=== PATIENT | male | born 1960 | race African-American/Black ===

== ENCOUNTER 2016-08-09 15:23 | Emergency (ER) | payer OTHER ==
[2016-08-09 15:31] VITALS: BP 123/79
--- NOTE | 2016-08-09 16:14 | UC ---
[facility] HPI - HPI Summary HPI Summary: PT WITH CHIPPED, CRACKED RIGHT UPPER TEETH AND OVERALL POOR DENTITION. WENT TO SLEEP LAST NIGHT AND THIS MORNING WOKE UP WITH WHOLE RIGHT SIDE OF FACE SWOLLEN. WENT TO DENTIST ([facility]) AND DRAINAGE ATTEMPTED BUT NOT SUFFICIENT. WAS ADVISED TO COME HERE FOR IV ABX. - History of Current Complaint Chief Complaint: UCDentalProblem Stated Complaint: TOOTH COMPLAINT Time Seen by Provider: 08/09/16 15:59 Hx Obtained From: Patient Onset/Duration: Sudden Onset, Lasting Hours, Still Present Severity: Moderate Pain Intensity: 8 Pain Scale Used: 0-10 Numeric Aggravating: Heat, Cold, Chewing Alleviating: Nothing Related History: Previous Dental Care on Same Tooth, Discharge, Swelling - Allergies/Home Medications Allergies/Adverse Reactions: Allergies Allergy/AdvReac Type Severity Reaction Status Date / Time Bee Venom Allergy Severe Anaphylatic Verified 08/09/16 15:30 Shock DUST Allergy Severe BREATHING Uncoded 08/09/16 15:30 PROBLEMS Home Medications: Home Medications ALPRAZolam TAB* [Xanax TAB*] 08/09/16 [History Confirmed 08/09/16] Cetirizine* [ZyrTEC 10 MG TAB*] 08/09/16 [History Confirmed 08/09/16] Hydrochlorothiazide TAB* [Hydrodiuril TAB*] 25 mg PO DAILY 08/09/16 [History Confirmed 08/09/16] Lisinopril [Zestril 20 MG-] 08/09/16 [History] Sertraline HCl [Zoloft] 100 mg PO 08/09/16 [History] PMH/Surg Hx/FS Hx/Imm Hx Cardiovascular History: Hypertension Psychological History: Anxiety - Surgical History Surgical History: None - Family History Known Family History: Positive: Hypertension - Social History Alcohol Use: None Substance Use Type: None Smoking Status (MU): Current Every Day Smoker Amount Used/How Often: 1/2 pack a day Review of Systems Constitutional: Negative Eyes: Negative ENT: Dental Pain Respiratory: Negative Cardiovascular: Negative Gastrointestinal: Negative All Other Systems Reviewed And Are Negative: Yes Physical Exam Triage Information Reviewed: Yes Appearance: Well-Appearing, No Pain Distress, Well-Nourished Vital Signs: Initial Vital Signs Temp 97.2 F 08/09/16 15:30 Pulse 61 08/09/16 15:30 Resp 16 08/09/16 15:30 BP 123/79 08/09/16 15:30 Pulse Ox 100 08/09/16 15:30 Vital Signs Reviewed: Yes Eyes: Positive: Conjunctiva Clear ENT: Positive: Hearing grossly normal Dental: Positive: Gross Decay/Caries @ - DIFFUSELY POOR DENTITION WITH MULTIPLE MISSING TEETH. TENDER TO PERCUSSION RIGHT UPPER TEETH. RIGHT FACIAL SWELLING UP TO INFRAORBITAL REGION. Neck: Positive: Supple, Nontender Respiratory: Positive: No respiratory distress, No accessory muscle use Cardiovascular: Positive: Pulses Normal Abdomen Description: Positive: Soft Musculoskeletal: Positive: ROM Intact Neurological: Positive: Alert Psychological: Positive: Age Appropriate Behavior Skin: Negative: rashes Dental Complaint Course/Dx - Course Course Of Treatment: SPOKE TO DR. JANNETTE ADAMS DDS FROM [facility]. SHE CONFIRMED PT NEED FOR IV ABX FOR SIGNIFICANT DENTAL ABSCESS. STATED THAT ORAL SURGEON IN [place] WOULD BE CALLING PT ON FRIDAY TO SCHEDULE AN APPT FOR EXTRACTION BUT THAT THEY REQUIRED HIM TO BE TX WITH IV ABX FIRST. TO [facility] [place] ER BY PRIVATE CAR. - Differential Dx/Diagnosis Provider Diagnoses: DENTAL ABSCESS WITH FACIAL SWELLING - Physician Notification/Consults Discussed Patient Care With: Rosa Elena Robertson - TO [facility] ER BY PRIVATE CAR Time Discussed With Above Provider: 16:49 Discharge - Discharge Plan Condition: Stable Disposition: AGAINST MEDICAL ADVICE Referrals: Derrek Alfredo MD [Medical Doctor] -
== END 2016-08-09 16:45 | disposition left against medical advice (07) ==
LOC: UCEAST 15:23
DX: K04.7 Periapical abscess without sinus (principal); R22.0 Localized swelling, mass and lump, head; F17.210 Nicotine dependence, cigarettes, uncomplicated
CPT/HCPCS: 99202; G0463

== ENCOUNTER 2016-08-09 17:28 | Emergency (ER) | payer OTHER ==
[2016-08-09 18:27] LABS: Hematocrit 38 % (42-52); Hemoglobin 12.6 g/dl (14.0-18.0); Mean Corpuscular HGB Conc 34 g/dl (31-36); Mean Corpuscular Hemoglobin 33 pg (27-31); Mean Corpuscular Volume 100 fL (80-94); Mean Platelet Volume 8 um3 (7.4-10.4); Red Blood Count 3.77 10^6/ul (4.0-5.4); Red Cell Distribution Width 13 % (10.5-15); White Blood Count 13.4 10^3/ul (3.5-10.8)
[2016-08-09] MEDS ORDERED: Ketorolac INJ* 30 MG/ML 1 ML VIAL IV PUSH ONE (18:33)
[2016-08-09 18:42] LABS: Albumin 4.5 g/dL (3.2-5.2); BUN/Creatinine Ratio 12.1 (8-20); Calcium 9.6 mg/dL (8.6-10.3); EGFR African American 92.6 (>60); Globulin 3.7 g/dL (2-4); Potassium 2.9 mmol/L (3.5-5.0); Total Bilirubin 0.8 mg/dL (0.2-1.0); Total Protein 8.2 g/dL (6.4-8.9)
--- NOTE | 2016-08-09 18:45 | ED ---
Throat Pain/Nasal Congestion - HPI Summary HPI Summary: 55 male presents sent over from urgent care for a dental abscess. Patient states he was at his dentist today who attempted to drain his abscess but was unsuccessful. Tried to get into an oral surgeon's office however was told that he needed IV antibiotics before having it surgically drained. However does state the swelling has improved some since the procedure. Patient states he has had a fractured tooth that worsened a couple of days ago and this morning he woke up with a swollen face and pain of his upper right jaw and cheek. Admits to feeling feverish. Denies difficulty breathing and difficulty swallowing. No other complaints at this time. No PMHx. No recent trauma or injury. - History of Current Complaint Chief Complaint: EDDentalPain Time Seen by Provider: 08/09/16 18:08 Hx Obtained From: Patient Onset/Duration: Sudden Onset, Lasting Days - 1 Severity: Severe Associated Signs And Symptoms: Positive: Negative Cough: None - Epiglottits Risk Factors Epiglottis Risk Factors: Negative - Allergies/Home Medications Allergies/Adverse Reactions: Allergies Allergy/AdvReac Type Severity Reaction Status Date / Time Bee Venom Allergy Severe Anaphylatic Verified 08/09/16 18:02 Shock Penicillins Allergy Intermediate Unknown Verified 08/09/16 19:40 Reaction Details DUST Allergy Severe BREATHING Uncoded 08/09/16 18:02 PROBLEMS PMH/Surg Hx/FS Hx/Imm Hx Endocrine/Hematology History: Denies: Hx Diabetes Cardiovascular History: Denies: Hx Hypertension Respiratory History: Denies: Hx Asthma - Surgical History Surgery Procedure, Year, and Place: n/a - Immunization History Immunizations Up to Date: Yes Infectious Disease History: No Infectious Disease History: Denies: Traveled Outside the [place] in Last 30 Days - Family History Known Family History: Positive: Hypertension - Social History Alcohol Use: None Substance Use Type: Reports: None Smoking Status (MU): Never Smoked Tobacco Amount Used/How Often: 1/2 pack a day Review of Systems Positive: Fever Eyes: Negative Cardiovascular: Negative Respiratory: Negative Gastrointestinal: Negative Positive: Other - swelling, abscess Neurological: Negative All Other Systems Reviewed And Are Negative: Yes Physical Exam Triage Information Reviewed: Yes Vital Signs On Initial Exam: Initial Vitals Temp Pulse Resp BP Pulse Ox 97.4 F 65 17 134/80 97 08/09/16 17:28 08/09/16 17:28 08/09/16 17:28 08/09/16 17:28 08/09/16 17:28 Vital Signs Reviewed: Yes Appearance: Positive: Well-Appearing, No Pain Distress, Well-Nourished Skin: Positive: Warm, Skin Color Reflects Adequate Perfusion, Dry, Other - significant edema of right side face/cheek. warm and tender to touch. palpable abscess over right maxillary sinus area. no drainage or open wounds Head/Face: Positive: Other - edema of right side face as noted above Eyes: Positive: Normal, EOMI, BRITTANEY, Conjunctiva Clear, Other: - no visual changes ENT: Positive: Normal ENT inspection, Hearing grossly normal, Pharynx normal, TMs normal, Dental tenderness - right upper, Other - patent airway and no sign of peritonsillar abscess. Negative: Trismus, Muffled/hoarse voice Dental: Positive: Gross Decay/Caries @, Dental Fracture @ - right upper molar, Abscess @ - over right maxillary sinus above right upper molar. about the size of a grape palpated. very tender to touch., Cervical Lymphadenopathy Neck: Positive: Supple, Nontender Respiratory/Lung Sounds: Positive: Clear to Auscultation, Breath Sounds Present. Negative: Rales, Rhonchi, Stridor, Wheezes Cardiovascular: Positive: Normal, RRR, Pulses are Symmetrical in both Upper and Lower Extremities. Negative: Murmur, Rub Bowel Sounds: Positive: Present Musculoskeletal: Positive: Normal, Strength/ROM Intact Neurological: Positive: Normal, Sensory/Motor Intact, Alert, Oriented to Person Place, Time, Normal Gait Psychiatric: Positive: Normal AVPU Assessment: Alert Diagnostics - Vital Signs Vital Signs Temp Pulse Resp BP Pulse Ox 08/09/16 18:01 97.4 F 65 16 134/80 97 08/09/16 17:28 97.4 F 65 17 134/80 97 - Laboratory Lab Results: Lab Results 08/09/16 Range/Units 18:15 WBC 13.4 H (3.5-10.8) 10^3/ul RBC 3.77 L (4.0-5.4) 10^6/ul Hgb 12.6 L (14.0-18.0) g/dl Hct 38 L (42-52) % MCV 100 H (80-94) fL MCH 33 H (27-31) pg MCHC 34 (31-36) g/dl RDW 13 (10.5-15) % Plt Count 268 (150-450) 10^3/ul MPV 8 (7.4-10.4) um3 Neut % (Auto) 79.9 (38-83) % Lymph % (Auto) 11.7 L (25-47) % Dougherty % (Auto) 7.0 (1-9) % Eos % (Auto) 0.6 (0-6) % Baso % (Auto) 0.8 (0-2) % Absolute Neuts (auto) 10.7 H (1.5-7.7) 10^3/ul Absolute Lymphs (auto) 1.6 (1.0-4.8) 10^3/ul Absolute Monos (auto) 0.9 H (0-0.8) 10^3/ul Absolute Eos (auto) 0.1 (0-0.6) 10^3/ul Absolute Basos (auto) 0.1 (0-0.2) 10^3/ul Absolute Nucleated RBC 0 10^3/ul Nucleated RBC % 0 Result Diagrams: 08/09/16 18:15 08/09/16 18:15 Lab Statement: Any lab studies that have been ordered have been reviewed, and results considered in the medical decision making process. - CT ct maxillofacial CT Interpretation: Positive (See Comments) - NONCONTRAST IMAGING SHOWS SOFT TISSUE SWELLING OF THE RIGHT MAXILLARY SOFT TISSUES BUT NO LOCALIZED ABSCESS NO PERIOSTEAL REACTIVE CHANGE. CT Interpretation Completed By: Radiologist EENT Course/Dx - Course Course Of Treatment: given toradol for pain and inflammation, had relief. Lab work obtained. WBC elevated, not elevated enough for admission, no signs of sepsis at this time. Anemia. CT maxillofacial obtained and showed soft tissue swelling. IV clindamycin dose given. Patient PCN allergy. Given clindamycin to take at home for 10 days. Patients Potassium also low and treated. Patient taking HCTZ. Told to follow up with PCP on skilled nursing management. given one more to take tomorrow. Aware of worsening signs and symptoms to watch out for. Call and make appointment with oral surgeon as directed. - Differential Diagnoses Differential Diagnoses: Dental Abscess, Dental Caries, Fractured Tooth, Mandibular/Maxillary Trauma, Odontogenic Pain, Periorbital/Orbital Cellulitis, Periodontic Abscess - Diagnoses Provider Diagnoses: Dental abscess, Hypokalemia Discharge - Discharge Plan Condition: Stable Disposition: HOME Prescriptions: Clindamycin CAP* [Cleocin 150 MG CAP*] 300 mg PO QID #80 cap Potassium Chlor TAB* [Potassium Chlor TAB 20 MEQ*] 40 meq PO DAILY #1 tab.er Patient Education Materials: Dental Abscess (ED), Hypokalemia (ED) Referrals: Alyssa Vargas MD [Primary Care Provider] - Additional Instructions: Take prescribed medication as directed. Try taking probiotic pill or eating brazilian yogurt daily in between antbiotic dose to replenish normal kandi. Follow up with PCP to manage lab work findings. Make an appointment with oral surgeon for dental abscess. Return if symptoms worsening or not improve. Return immediately if difficulty breathing or swallowing. Ibuprofen for pain, fever and inflammation as needed, with food. Drink plenty of fluids.
--- NOTE | 2016-08-09 19:09 | RAD ---
INDICATION: Right facial swelling. Abscess. COMPARISON: None TECHNIQUE: Axial source images were acquired from the vertex of the mandible through the orbits. Coronal and sagittal reconstructed images were acquired. This examination was ordered without intravenous contrast per ED request. FINDINGS: Bones: There is no acute facial bone fracture. There is no periosteal reactive change. Orbits: The globes and intraconal structures appear intact. The optic nerves are symmetric. Extraocular muscles appear normal. There is no intraconal inflammatory change or retrobulbar mass.. Paranasal sinuses: The paranasal sinuses are clear. Brain: There are no acute abnormalities of the visualized brain parenchyma. Soft tissues: There is soft tissue swelling of the right maxillary region. Noncontrast imaging shows no localized fluid collection to suggest abscess. Other: None The visualized soft tissue elements about the neck appear normal. IMPRESSION: NONCONTRAST IMAGING SHOWS SOFT TISSUE SWELLING OF THE RIGHT MAXILLARY SOFT TISSUES BUT NO LOCALIZED ABSCESS NO PERIOSTEAL REACTIVE CHANGE.
[2016-08-09] MEDS ORDERED: Clindamycin 600 MG IVPREMIX(* 600 MG/50 ML SDV IV ONE (19:12)
[2016-08-09] MEDS ORDERED: Potassium Chlor TAB* 20 MEQ TAB.ER PO ONE (19:13)
[2016-08-09 20:52] VITALS: BP 142/82
== END 2016-08-09 20:42 | disposition home or self-care (01) ==
LOC: ED 17:28
DX: K04.7 Periapical abscess without sinus (principal); E87.6 Hypokalemia; Z88.0 Allergy status to penicillin
CPT/HCPCS: 36415; 70486; 80053; 83605; 85025; 86141; 99282; A9270-GY; J1885

== ENCOUNTER 2017-10-05 09:10 | Emergency (ER) | payer OTHER ==
--- NOTE | 2017-10-05 10:18 | ED ---
Throat Pain/Nasal Congestion - HPI Summary HPI Summary: This is scribe Connor Anand documenting for attending Dr. Sinan BRADY. I, Dr. Menon, personally performed the services described in this documentation as scribed in my presence and it is both accurate and complete. - History of Current Complaint Chief Complaint: EDDentalPain Time Seen by Provider: 10/05/17 09:55 - Allergies/Home Medications Allergies/Adverse Reactions: Allergies Allergy/AdvReac Type Severity Reaction Status Date / Time bee venom protein (honey bee) Allergy Anaphylatic Verified 10/05/17 09:23 Shock Penicillins Allergy Unknown Verified 10/05/17 09:23 Reaction Details DUST Allergy Severe BREATHING Uncoded 10/05/17 09:22 PROBLEMS PMH/Surg Hx/FS Hx/Imm Hx Endocrine/Hematology History: Denies: Hx Diabetes Cardiovascular History: Denies: Hx Hypertension Respiratory History: Denies: Hx Asthma - Surgical History Surgery Procedure, Year, and Place: n/a Infectious Disease History: No Infectious Disease History: Denies: Traveled Outside the [place] in Last 30 Days - Family History Known Family History: Positive: Hypertension - Social History Alcohol Use: None Substance Use Type: Reports: None Smoking Status (MU): Light Every Day Tobacco Smoker Amount Used/How Often: 1/2 pack a day Physical Exam Vital Signs On Initial Exam: Initial Vitals Temp Pulse Resp BP Pulse Ox 98.1 F 64 15 169/115 100 10/05/17 09:23 10/05/17 09:23 10/05/17 09:23 10/05/17 09:23 10/05/17 09:23 Diagnostics - Vital Signs Vital Signs Temp Pulse Resp BP Pulse Ox 10/05/17 09:23 98.1 F 64 15 169/115 100 - Laboratory Lab Statement: Any lab studies that have been ordered have been reviewed, and results considered in the medical decision making process. Discharge - Discharge Plan Referrals: Alyssa Vargas MD [Primary Care Provider] -
[2017-10-05] MEDS ORDERED: Lidocaine 1%* 5 ML VIAL INJ ONE (10:25)
[2017-10-05] MEDS ORDERED: Ketorolac INJ* 60 MG/2 ML VIAL IM ONE (11:00)
--- NOTE | 2017-10-05 11:15 | ED ---
Throat Pain/Nasal Congestion - HPI Summary HPI Summary: Patient is a 56-year-old male who presents emergency department for dental pain times several days. Pain is exacerbated with air and eating. Denies associated symptoms of fever, chills, nausea, vomiting. Patient states pain is 10 out of 10 and he has been taking Ultram at home with minimal relief. No significant past medical history. Symptoms are mild in severity. 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 - Allergies/Home Medications Allergies/Adverse Reactions: Allergies Allergy/AdvReac Type Severity Reaction Status Date / Time bee venom protein (honey bee) Allergy Anaphylatic Verified 10/05/17 09:23 Shock Penicillins Allergy Unknown Verified 10/05/17 09:23 Reaction Details DUST Allergy Severe BREATHING Uncoded 10/05/17 09:22 PROBLEMS Home Medications: Home Medications Aspirin 81 mg PO 10/05/17 [History] Tramadol HCl 2 tab PO DAILY 10/05/17 [History Confirmed 10/05/17] PMH/Surg Hx/FS Hx/Imm Hx Previously Healthy: Yes Endocrine/Hematology History: Denies: Hx Diabetes Cardiovascular History: Denies: Hx Hypertension Respiratory History: Denies: Hx Asthma - Surgical History Surgery Procedure, Year, and Place: n/a Infectious Disease History: No Infectious Disease History: Denies: Traveled Outside the [place] in Last 30 Days - Family History Known Family History: Positive: Hypertension - Social History Occupation: Employed Full-time Lives: With Family Alcohol Use: None Substance Use Type: Reports: None Smoking Status (MU): Light Every Day Tobacco Smoker Amount Used/How Often: 1/2 pack a day Review of Systems Constitutional: Negative Negative: Fever, Chills Positive: Dental Pain Gastrointestinal: Negative Negative: Vomiting, Diarrhea All Other Systems Reviewed And Are Negative: Yes Physical Exam Triage Information Reviewed: Yes Vital Signs On Initial Exam: Initial Vitals Temp Pulse Resp BP Pulse Ox 98.1 F 64 15 169/115 100 10/05/17 09:23 10/05/17 09:23 10/05/17 09:23 10/05/17 09:23 10/05/17 09:23 Vital Signs Reviewed: Yes Appearance: Positive: Well-Appearing - Patient sitting in bed in no acute distress. present. Skin: Positive: Warm, Dry Head/Face: Positive: Normal Head/Face Inspection Eyes: Positive: Normal, EOMI ENT: Positive: Pharynx normal Dental: Positive: Other - Poor dentition throughout. Pain on palpation to the top left lateral incisor with decay. Surrounding gums erythematous and edematous. No drainable abscess noted. No swelling of the tongue. No submandibular edema. No trismus. Neck: Positive: Supple, Nontender, No Lymphadenopathy Musculoskeletal: Positive: Normal Neurological: Positive: Normal, CN Intact II-III Psychiatric: Positive: Affect/Mood Appropriate Procedures - Procedure Summary Procedure Summary: Supraperiosteal nerve block was performed to affected tooth using 2 cc LIDOCAINE. PATIENT TOLERATED WELL. Diagnostics - Vital Signs Vital Signs Temp Pulse Resp BP Pulse Ox 10/05/17 09:23 98.1 F 64 15 169/115 100 - Laboratory Lab Statement: Any lab studies that have been ordered have been reviewed, and results considered in the medical decision making process. EENT Course/Dx - Course Course Of Treatment: Pt. presenting for dental pain. He is afebrile and well appearing. No drainable abscess on exam. Nerve block performed as noted above. Will start pt. on clindamycin. Pt. notes he has been taking ultram at home with no relief and request additional pain medications. 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 Rx for 9 lortab given to take instead of ultram. Also advised motrin. To call dentist on Friday for an apt. To return to ER if sxs change or worsen. - Differential Diagnoses Differential Diagnoses: Dental Abscess, Dental Caries, Periodontic Abscess, Periodontic Disease - Diagnoses Provider Diagnoses: Dental abscess Discharge - Sign-Out/Discharge Documenting (check all that apply): Patient Departure - Discharge Plan Condition: Good Disposition: HOME Prescriptions: Clindamycin Cap(NF) [Clindamycin Cap 300 mg Cap(NF)] 300 mg PO Q6H #40 cap Hydrocodone/Acetaminophen [Hydrocodone-Acetamin 5-325 mg] 1 each PO Q6H #9 tablet MDD 4 tablets Patient Education Materials: Toothache (ED) Referrals: Alyssa Vragas MD [Primary Care Provider] - Additional Instructions: Call your dentist tomorrow morning for an appointment Take antibiotic as directed Take hydrocodone instead of ultram Take 800mg motrin every 8 hours for pain Return to ER for increased pain, fever, vomiting, facial swelling - Billing Disposition and Condition Condition: GOOD Disposition: Home
[2017-10-05 11:23] VITALS: BP 169/92
== END 2017-10-05 11:22 | disposition home or self-care (01) ==
LOC: ED 09:10
DX: K04.7 Periapical abscess without sinus (principal); F17.210 Nicotine dependence, cigarettes, uncomplicated; Z79.82 Long term (current) use of aspirin; Z88.0 Allergy status to penicillin
CPT/HCPCS: 96372; 99282; J1885

== ENCOUNTER 2022-09-13 13:12 | Inpatient (IN) ==
[2022-09-14] MEDS ORDERED: Dexamethasone IV 4 MG/ML VIAL 1 ml VIAL IV SLOW PU ONE (05:36)
[2022-09-14 05:49] LABS: ABS Basophils 0.1 10^3/uL (0.0-0.1); ABS Eosinophils 0.5 10^3/uL (0.0-0.5); ABS Lymphocytes 1.5 10^3/uL (1.0-4.8); ABS Monocytes 0.5 10^3/uL (0.0-1.1); ABS Neutrophils 2.7 10^3/uL (1.5-7.6); Hemoglobin 11.8 g/dL (13.2-16.3); Lymphocyte % 28.2 %; Mean Corpuscular Hemoglobin 35.3 pg (27-33); Mean Corpuscular Hgb Conc 34.6 g/dL (31-36); Mean Corpuscular Volume 102.2 fL (80-97); Mean Platelet Volume 7.5 fL (7.5-11.2); Nucleated Red Blood Cells % 0.1 /100 WBC (0.0-0.4); Platelet Count 204 10^3/uL (150-450); Red Blood Count 3.33 10^6/uL (4.06-5.63); Red Cell Distribution Width 13.7 % (12-17); White Blood Count 5.2 10^3/uL (3.6-10.2)
[2022-09-14 06:03] LABS: Calcium 9.1 mg/dL (8.6-10.3); Creatinine, Serum 0.96 mg/dL (0.67-1.17); HDL Cholesterol 41.1 mg/dL; Potassium 3.6 mmol/L (3.5-5.0); eGFR CKD-EPI 90.5 (>60)
[2022-09-14] MEDS ORDERED: Magnesium Sulfate 2 gm BAG 2 GM/50 ML BAG IVPB ONE (06:19)
[2022-09-14 06:38] LABS: TSH Ultra Thyroid Stim Horm 3.36 mcIU/mL (0.34-5.60)
[2022-09-14] MEDS ORDERED: Fluticasone NASAL SPRAY 50MCG 16 gm SPRAY BTL INTRANASAL SCH (09:00)
[2022-09-14] MEDS ORDERED: Gadoteridol (CONTRAST) 279.3 MG/ML 10 ML IV ONE (13:15)
[2022-09-14 15:18] VITALS: BP 115/66
== END 2022-09-14 15:08 | disposition home or self-care (01) | DRG 40 ==
LOC: ED 13:12 → MED 23:45 → EDHOLD 23:45 → SUATTDRO 23:45 → MED 09-14 13:50
PROVIDERS: ADMIT Internal Medicine; ATTEND Internal Medicine